=== PATIENT | male | born 1945 | race Caucasian/White ===

== ENCOUNTER 2024-10-11 10:14 | Inpatient (IN) | payer OTHER ==
[~2024-10-11] VITALS: Ht 167.6 cm; Wt 110.6 kg
[~2024-10-11 10:14] MED LIST: ACET500 PO; ALLO100 PO; ALLO300 PO; AMLO10 PO; ATOR20 PO; Aspir 8181 MG PO; BUPR75 PO; BUSP15 PO; COLCHICINE0.6 MG PO; DIGOX125 MC1 PO; ELIQUIS5 M2 PO; HYDCHL25 PO; LATUDA60 M1 PO; LEVFLO250 PO; LISI20 PO; LITH300C PO; LOPE2C PO; LOSHYD PO; METF500 PO; METO25 PO; OMEGA 500 MG PO; OXYACE5T PO; PHENA200 PO; PREG150 PO; PREG75 PO; PSEU120ER PO; QUET25 PO; RXOXYACE PO; SULTRIDS PO; Seroquel Xr50 MG PO; TAMS.4ER PO; TERA5 PO
[2024-10-11] MEDS ORDERED: NS 1,000 ML IV SCH ×3 (10:35→15:30)
[2024-10-11 11:06] LABS: BASOPHILS ABSOLUTE AUTO 0.01 K/mm3 (0.00-0.23); BASOPHILS PERCENT AUTO 0 % (0-2); EOSINOPHILS ABSOLUTE AUTO 0.04 K/mm3 (0.00-0.68); EOSINOPHILS PERCENT AUTO 0 % (0-6); Hematocrit 36.8 % (37.0-53.0); Hemoglobin 12.3 g/dL (13.5-17.5); IMMATURE GRAN ABSOLUTE AUTO 0.04 K/mm3 (0.00-0.10); IMMATURE GRAN PERCENT AUTO 0 % (0-1); LYMPHOCYTES ABSOLUTE AUTO 0.62 K/mm3 (0.84-5.20); LYMPHOCYTES PERCENT AUTO 7 % (21-46); MONOCYTES ABSOLUTE AUTO 0.77 K/mm3 (0.16-1.47); MONOCYTES PERCENT AUTO 8 % (4-13); Mean Corpuscular HGB Conc 33.4 g/dL (31.5-36.5); Mean Corpuscular Volume 100 fL (80-100); NEUTROPHILS ABSOLUTE AUTO 7.98 K/mm3 (1.96-9.15); NEUTROPHILS PERCENT AUTO 84 % (41-73); NRBC ABSOLUTE 0.00 K/mm3 (0.00-0.02); NRBC Auto 0.0 /100 WBC (0.0-0.2); Platelet Count 140 K/mm3 (150-400); RDW Coefficient Variation 13.3 % (11.7-14.2); RDW Standard Deviation 48.9 fL (35.1-46.3)
[2024-10-11 14:17] LABS: Alanine Aminotransfer (ALT/SGP 27.0 U/L (12-78); Albumin, Blood 3.0 g/dL (3.4-5.0); Albumin/Globulin Ratio 0.7 (0.8-1.8); Anion Gap 23.0 mmol/L (3-11); Aspartate Aminotrans (AST/SGOT 51.0 U/L (12-37); Bilirubin, Total 1.0 mg/dL (0.1-1.0); Blood Urea Nitrogen 96.0 mg/dL (8-24); CO2, Blood 17.0 mmol/L (21-32); Calcium, Blood 10.9 mg/dL (8.5-10.1); Chloride, Blood 107.0 mmol/L (98-108); Creatinine, Blood 4.53 mg/dL (0.60-1.20); Globulin, Blood 4.2 g/dL (2.2-4.0); Glucose, Blood 167.0 mg/dL (70-99); Potassium, Blood 4.3 mmol/L (3.5-5.5); Sodium, Blood 143.0 mmol/L (136-145); Total Protein, Blood 7.2 g/dL (6.4-8.2)
[2024-10-11] MEDS ORDERED: Polyethylene Glycol 3350 17 gm PO PRN (15:30)
[2024-10-11] MEDS ORDERED: Insulin Human Lispro 100 Units/ML 3ML Syringe SC SCH (16:30)
[2024-10-11 18:23] VITALS: BP 133/106
--- NOTE | 2024-10-11 18:29 | NUR ---
ADMIT PT ADMITTED TO ROOM 328 FROM THE ER. ORIENTED TO ROOM. CALL LIGHT IN REACH. PT GIVEN BEDBATH AND POWDER APPLIED TO HIS UZMA AREA. GROIN, ABD FOLDS, AND SCROTUM ARE RED AND SMELL FUNGAL. L THIGH HAS LARGE SPLIT TO IT FROM EXCORIATIONS AND INCONTINENCE. SCROTUM ALSO HAS SOME SMALL LEGIONS FROM THIS. LARGE BRUISE TO UPPER L ABD. ABRASIONS TO BILATERAL FORARMS AND KNEES, PT STATES FROM CRAWLING ON THE FLOOR AT HOME. SCATTERED BRUISING OTHERWISE. HR IRREGULAR, MURMUR HEARD. LS CLEAR. BREATHING REGULAR AND UNLABORED. 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 2/10 PAIN LEVEL REPORTED AT THIS TIME. PT OFFERED THE URINAL, BUT STATES HE DOES NOT NEED IT AT THIS TIME. VS REVIEWED.
[2024-10-11 19:37] VITALS: BP 145/95
--- NOTE | 2024-10-11 20:39 | NUR ---
GOT A CALL FROM [employer] THAT PT WAS IN AFIB AT A RATE OF 143. I UPDATED THE PTS MEDS. CALLED MD AND GOT ORDERS FOR METOPROLOL. MEDS WILL BE GIVEN ORDERED.
[2024-10-11] MEDS ORDERED: Metoprolol Tartrate 1 MG/ML 5 ML VIAL IV ONE (20:40)
[2024-10-11] MEDS ORDERED: Heparin Sodium,Porcine 5,000 UNIT/0.5 ML SDV SC SCH (21:00)
[2024-10-11] MEDS ORDERED: Miconazole Nitrate 2% 85 GM PWD TOP SCH (21:00)
[2024-10-11] MEDS ORDERED: Docusate Sodium/Senna 1 Tab PO SCH (21:00)
[2024-10-11 23:33] VITALS: BP 128/95
[2024-10-12 02:42] LABS: Source, Urine Clean Catch
[2024-10-12 02:45] LABS: Bilirubin, Urine Neg (Neg); Glucose Qualitative, Urine Neg (Neg); Ketones, Urine Neg (Neg); Leukocyte Esterase, Urine 1+ (Neg); Protein, Urine 2+ (Neg); Specific Gravity, Urine 1.020 (1.003-1.022); Urobilinogen, Urine NORM (Normal)
[2024-10-12 03:02] LABS: Color, Urine Yellow (P-Yellow)
[2024-10-12 03:03] LABS: Red Blood Cells, Urine 25-50 /hpf (0-2)
[2024-10-12 04:02] VITALS: BP 131/92
--- NOTE | 2024-10-12 04:52 | NUR ---
SHIFT SUMMARY NEW ADMIT ARRIVED AT 1814 WITH A DX OF ACUTE ON CHRONIC RENAL FAILURE, WEAKNESS, FALL, MUSCULAR DECONDITIONING AND TREMORS. HE WAS ORIENTED TO ROOM AND STAFF. ALERT ORIENTED TO SELF AND PLACE UNSURE OF WHAT THE DATE IS HE STATED IT WAS MARCH. WHEN HE ARRIVED TO US HIS HR WAS IN THE 130'S-140'S. CALLED MD AND HE GAVE ORDERS TO START HIS METOPROLOL PO AND GIVE A 5MG IV ALSO. AFTER GIVING BOTH HIS TELEMETRY IS AT AFIB AT 80. HE HAS TREMORS TO HIS UPPER BODY THAT HE STATED THAT HE HAS ALL THE TIME. HE HAS SCROTAL LESIONS WITH REDNESS, EXCORIATION AND SPLIT TO LT THIGH, REDNESS TO GROIN, ABD FOLDS AND SCROTUM, ABRASIONS TO BILAT KNEES AND ARMS, BARRIER CREAM AND DESENEX WAS APPLIED TO SKIN. BP STABLE. REMAINS ON NS AT 100. I SENT IN A UA. HIS URINE IS DARK COLORED AND MUCOUSY. HE HAS A CONSULT FOR DR. MELO. I ADDED HIM TO DR. REMY LIST. FS DONE AC AND HS WAS 128. HES CONT AND INC OF URINE. RESTING IN BED AT THIS TIME WITH CALL LIGHT IN REACH
[2024-10-12 06:19] LABS: Hematocrit 30.3 % (37.0-53.0); Hemoglobin 10.1 g/dL (13.5-17.5); Mean Corpuscular HGB Conc 33.3 g/dL (31.5-36.5); Mean Corpuscular Volume 99 fL (80-100); NRBC ABSOLUTE 0.00 K/mm3 (0.00-0.02); NRBC Auto 0.0 /100 WBC (0.0-0.2); Platelet Count 125 K/mm3 (150-400); RDW Coefficient Variation 13.3 % (11.7-14.2); RDW Standard Deviation 48.9 fL (35.1-46.3)
[2024-10-12] MEDS ORDERED: Darbepoetin (Pharmacy Consult) SC SCH (06:20)
[2024-10-12 07:01] LABS: Ferritin, Serum 415 ng/mL (26-388); Magnesium, Blood 2.1 mg/dL (1.6-2.4); Total Iron Binding Capacity 233 ug/dL (250-450)
[2024-10-12 07:20] VITALS: BP 149/93
[2024-10-12 07:25] LABS: Albumin, Blood 2.3 g/dL (3.4-5.0); Anion Gap 11 mmol/L (3-11); Blood Urea Nitrogen 80 mg/dL (8-24); CO2, Blood 18 mmol/L (21-32); Calcium, Blood 9.3 mg/dL (8.5-10.1); Chloride, Blood 114 mmol/L (98-108); Creatinine, Blood 3.32 mg/dL (0.60-1.20); Glucose, Blood 105 mg/dL (70-99); Phosphorus, Blood 4.0 mg/dL (2.5-4.9); Potassium, Blood 4.2 mmol/L (3.5-5.5); Sodium, Blood 139 mmol/L (136-145)
[2024-10-12] MEDS ORDERED: Sodium Bicarb 8.4% Inj 75 MEQ in Sodium Chloride 0.45% 1,000 ML IV SCH (08:20)
[2024-10-12] MEDS ORDERED: CefTRIAXone Sodium 1,000 MG in NS 100 ML IV SCH (09:00)
[2024-10-12 09:44] LABS: Albumin, Blood 2.3 g/dL (3.4-5.0); Anion Gap 10 mmol/L (3-11); Blood Urea Nitrogen 82 mg/dL (8-24); CO2, Blood 19 mmol/L (21-32); Calcium, Blood 9.5 mg/dL (8.5-10.1); Chloride, Blood 114 mmol/L (98-108); Creatinine, Blood 3.43 mg/dL (0.60-1.20); Glucose, Blood 99 mg/dL (70-99); Phosphorus, Blood 3.6 mg/dL (2.5-4.9); Potassium, Blood 4.1 mmol/L (3.5-5.5); Sodium, Blood 139 mmol/L (136-145)
[2024-10-12] MEDS ORDERED: LOSARTAN POTASS50 M1 PO (11:18)
[2024-10-12] MEDS ORDERED: THERA-D2000 UNIT PO (11:18)
[2024-10-12] MEDS ORDERED: BUME1 PO (11:20)
[2024-10-12] MEDS ORDERED: SODBIC650 PO ×2 (11:21→11:22)
[2024-10-12] MEDS ORDERED: CALC.25 PO (11:21)
[2024-10-12 11:29] VITALS: BP 136/92
[2024-10-12 15:37] VITALS: BP 142/99
--- NOTE | 2024-10-12 17:16 | NUR ---
SHIFT SUMMARY PT AOX2-3, FORGETFUL AND IMPULSIVE AT TIMES. BA/CA ON. PT A 1 ASSIST TO THE BR WITH THE FWW. RESPOSITIONS SELF IN BED. UP TO THE CHAIR WITH MEALS. NO EVENTS PER TELE. NO ACUTE EVENTS. DAUGHTER AT THE BS THIS SHIFT. CALL LIGHT WITHIN REACH, BED LOCKED AND IN THE LOWEST POSITION. WILL REPORT TO ONCOMING NURSE.
[2024-10-12 20:24] VITALS: BP 126/74
[2024-10-12 23:32] VITALS: BP 148/84
[2024-10-13 04:22] VITALS: BP 151/79
--- NOTE | 2024-10-13 04:47 | NUR ---
SHIFT SUMMARY PT ALERT ORIENTED X 3 UNSURE OF DATE. HE REMAINS WITH SOME TYPE OF NEURO PROBLEM AND HAS TREMOS TO BOTH OF HIS HANDS. GETS UP WITH 1 PERSON SBA AND WALKER AND AMBULATES TO THE BATHROOM. REMAINS ON ROCEPHIN ORDERED FOR UTI. HIS DAUGHTER CAME IN [place] TO SEE HIM. REMAINS ON TELE AT FIB AT 86. DR. MELO IS SEEING HIM FOR HIS KIDNEY DISEASE. REMAINS IN AFIB. HE HAS RED EXCORIATED AREAS TO HIS GROIN ABD FOLDS DESENEX IS APPLIED TO THE AREA. RESTING IN BED AT THIS TIME WITH CALL LIGHT IN REACH
[2024-10-13 05:09] LABS: Hematocrit 30.0 % (37.0-53.0); Hemoglobin 10.1 g/dL (13.5-17.5)
[2024-10-13 05:35] LABS: Albumin, Blood 2.1 g/dL (3.4-5.0); Anion Gap 9 mmol/L (3-11); Blood Urea Nitrogen 72 mg/dL (8-24); CO2, Blood 21 mmol/L (21-32); Calcium, Blood 9.1 mg/dL (8.5-10.1); Chloride, Blood 111 mmol/L (98-108); Creatinine, Blood 3.55 mg/dL (0.60-1.20); Glucose, Blood 109 mg/dL (70-99); Magnesium, Blood 2.0 mg/dL (1.6-2.4); Phosphorus, Blood 3.4 mg/dL (2.5-4.9); Potassium, Blood 4.0 mmol/L (3.5-5.5); Sodium, Blood 137 mmol/L (136-145)
[2024-10-13 07:11] VITALS: BP 136/96
[2024-10-13] MEDS ORDERED: NS 1,000 ML IV SCH (07:45)
[2024-10-13] MEDS ORDERED: Sodium Bicarb 8.4% Inj 75 MEQ in Sodium Chloride 0.45% 1,000 ML IV SCH (08:55)
[2024-10-13 11:15] VITALS: BP 141/87
[2024-10-13 15:29] VITALS: BP 145/89
--- NOTE | 2024-10-13 18:24 | NUR ---
SHIFT SUMMARY PATIENT A/OX4, ABLE TO MAKE NEEDS KNOWN. PLEASANT AND COOPERATIVE WITH CARE, FLAT AFFECT. DR. MELO CALLED THIS AM TO CLARIFY FLUIDS ORDERS, PATIENT WITH NORMAL SALIN AND BICARB RUNNING SIMULTANEUOSLY PER DR. MELO. 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 PATIENT IMPULSIVE, INCONTINENT INTERMITTENTLY. BED ALARM AND CHAIR ALARMS IN PLACE, PATIENT ABLE TO GET UP IN RECLINER FOR MEALS TODAY. NO OTHER CONCERNS AT THIS TIME, WILL CONTINUE TO MONITOR.
[2024-10-13 20:29] VITALS: BP 146/94
[2024-10-13 23:40] VITALS: BP 145/87
[2024-10-14 03:27] VITALS: BP 131/86
[2024-10-14] MEDS ORDERED: Sodium Bicarb 8.4% 1 MEQ/ML 50 ML Vial ONE (05:34)
[2024-10-14 05:35] LABS: Hematocrit 28.8 % (37.0-53.0); Hemoglobin 9.6 g/dL (13.5-17.5)
[2024-10-14 06:08] LABS: Albumin, Blood 1.9 g/dL (3.4-5.0); Anion Gap 11 mmol/L (3-11); Blood Urea Nitrogen 60 mg/dL (8-24); CO2, Blood 21 mmol/L (21-32); Calcium, Blood 9.0 mg/dL (8.5-10.1); Chloride, Blood 111 mmol/L (98-108); Creatinine, Blood 3.38 mg/dL (0.60-1.20); Glucose, Blood 99 mg/dL (70-99); Magnesium, Blood 2.0 mg/dL (1.6-2.4); Phosphorus, Blood 3.3 mg/dL (2.5-4.9); Potassium, Blood 4.0 mmol/L (3.5-5.5); Sodium, Blood 139 mmol/L (136-145)
[2024-10-14 07:13] VITALS: BP 148/98
[2024-10-14] MEDS ORDERED: MIRALAX17 GM PO (10:27)
--- NOTE | 2024-10-14 12:09 | NUR ---
ATTEMPTED CALL TO [facility] AND RECEIVED VOICEMAIL BOX. VOICEMAIL LEFT FOR CALLBACK. WILL ATEMPT AGAIN PRIOR TO D/C.
--- NOTE | 2024-10-14 14:37 | NUR ---
DISCHARGE: PT D/C @1300 VIA WHEELCHAIR WITH TRANSPORT TO [facility]. IV REMOVED BY CERTIFIED HOME HEALTH AIDE W/O COMPLICATIONS. TELE SENT BACK. REPORT GIVEN TO NURSE SHANTE AT [facility]. ALL BELONGINGS SENT WITH TRANSPORT. PACKET SENT WITH TRANSPORT.
[2024-10-14] MEDS ORDERED: Darbepoetin Alfa In Albumn Sol 40 MCG/0.4 ML SC SCH (16:00)
== END 2024-10-14 13:04 | DRG 683 ==
LOC: ER 10:14 → MEDS 15:26 → ENPENDDIS 10-14 09:55 → MEDS 10-14 13:04
PROVIDERS: Internal Medicine; Internal Medicine Nephrology; Physician Assistant; ADMIT Internal Medicine
DX: N17.9 Acute kidney failure, unspecified (principal); E87.20 Acidosis, unspecified; M62.82 Rhabdomyolysis; F31.9 Bipolar disorder, unspecified; N18.4 Chronic kidney disease, stage 4 (severe); E11.22 Type 2 diabetes mellitus with diabetic chronic kidney disease; G25.2 Other specified forms of tremor; S30.1XXA Contusion of abdominal wall, initial encounter; S40.021A Contusion of right upper arm, initial encounter; I12.9 Hypertensive chronic kidney disease with stage 1 through stage 4 chronic kidney disease, or unspecified chronic kidney disease; M10.9 Gout, unspecified; E78.5 Hyperlipidemia, unspecified; I48.0 Paroxysmal atrial fibrillation; E86.0 Dehydration; D63.1 Anemia in chronic kidney disease; E61.1 Iron deficiency; W18.39XA Other fall on same level, initial encounter; Z60.2 Problems related to living alone; Y92.009 Unspecified place in unspecified non-institutional (private) residence as the place of occurrence of the external cause; Z79.01 Long term (current) use of anticoagulants; Z87.891 Personal history of nicotine dependence
CPT/HCPCS: 36415; 71046; 76770; 80048; 80053; 80069; 81001; 82550; 82728; 82947; 83036; 83540; 83550; 83690; 83735; 85014; 85018; 85025; 85027; 87086; 93005; 93010; 96360; 96361; 97110; 97112; 97116; 97161; 97530; 99285-25; A9270; J0696; J1644; J7030

== ENCOUNTER → 2025-02-28 | Outpatient (CLI) | payer OTHER ==
[~2025-02-28] MED LIST changes: +BUME1 PO; +CALC.25 PO; +LOSARTAN POTASS50 M1 PO; +MIRALAX17 GM PO; +SODBIC650 PO; +THERA-D2000 UNIT PO
[2025-03-01 11:57] LABS: Microalbumin, Urine Quant. 21.1 mg/L (0.000-20.000); Protein, Urine Quantitative 14.7 mg/dL (0.0-11.9)
== END | disposition home or self-care (01) ==
LOC: LAB 10:52 → LAB SHORT 10:52 → LAB FUT 02-16 10:40 → EDSTATUS 02-16 10:40
PROVIDERS: Internal Medicine Nephrology
DX: N18.4 Chronic kidney disease, stage 4 (severe) (principal); D63.1 Anemia in chronic kidney disease; N25.81 Secondary hyperparathyroidism of renal origin; E55.9 Vitamin D deficiency, unspecified; E29.1 Testicular hypofunction; R76.9 Abnormal immunological finding in serum, unspecified; R94.5 Abnormal results of liver function studies; R94.6 Abnormal results of thyroid function studies
CPT/HCPCS: 81050; 82043; 82570; 84156